=== PATIENT | male | born 1940 | race Caucasian/White ===

== ENCOUNTER → 2017-01-07 | Outpatient (CLI) | payer OTHER ==
[~2017-01-07] MED LIST: ASPIR 8181 MG PO; ASPIRIN325 PO; COREG25 MG PO; HYDRALAZINE 2525 MG PO; IBUPROFEN 200200 M1 PO; LASIX 20 MG TAB20 MG PO; NORVASC10 MG PO; PRINIVIL20 M1 PO
== END ==
LOC: NUC 08:06
DX: R07.9 Chest pain, unspecified (principal); I10 Essential (primary) hypertension; E78.5 Hyperlipidemia, unspecified; Z72.0 Tobacco use

== ENCOUNTER → 2017-07-12 | Outpatient (CLI) | payer OTHER ==
--- NOTE | ~2017-07-12 | 2DMMODE ---
[facility] [address] [place] [address] 2 D/M-MODE ECHOCARDIOGRAM Name: WALESKA PIERCE Room #: REG CL [facility]#: [id number] Admission: 07/12/17 Attend Phys: Maxwell Cullen MD Discharge: Date of : 40 Date of Service: 07/12/17 1404 Report #: [id number] THIS REPORT FOR: //name// APPROVED REPORT Study performed: 07/12/2017 13:56:49 EXAM: Comprehensive 2D, Doppler, and color-flow Echocardiogram Patient Location: Out-Patient Status: routine BSA: 1.85 HR: 56 bpm BP: 117/60 mmHg Rhythm: NSR Other Information Study Quality: Good Indications Essential HTN. Hx: PVD 2D Dimensions RVDd: 39.79 mm LVEF(%): 63.54 (>50%) IVSd: 10.12 (7-11mm) LVOT Diam: 19.63 (18-24mm) LVDd: 38.57 mm PWd: 10.37 (7-11mm) Ascending Ao: 26.58 (22-36mm) LVDs: 25.48 (25-40mm) Aortic Root: 32.17 mm Eaton's LVEF: 63.54 % Volumes Left Atrial Volume (Systole) Single Plane 4CH: 45.68 mL Single Plane 2CH: 45.36 mL LA ESV Index: 28.00 mL/m2 Aortic Valve AoV Peak José Antonio.: 1.37 m/s AO Peak Gr.: 7.50 mmHg LVOT Max P.32 mmHg LVOT Max V: 1.04 m/s TITO Vmax: 2.30 cm2 Mitral Valve E/A Ratio: 1.4 MV Decel. Time: 183.70 ms [facility] [place] [address] 2 D/M-MODE ECHOCARDIOGRAM Name: WALESKA PIERCE Room #: REG [facility]#: [id number] Admission: 07/12/17 Attend Phys: Maxwell Cullen MD Discharge: Date of : 40 Date of Service: 07/12/17 1404 Report #: [id number] MV E Max José Antonio.: 0.96 m/s MV A José Antonio.: 0.69 m/s MV PHT: 53.27 ms IVRT: 69.20 ms Pulmonary Valve PV Peak José Antonio.: 0.86 m/s PV Peak Gr.: 2.97 mmHg Pulmonary Vein P Vein S: 0.50 m/s P Vein A: 0.38 m/s P Vein D: 0.63 m/s P Vein A Dur.: 87.7 msec P Vein S/D Ratio: 0.79 Tricuspid Valve TR Peak José Antonio.: 3.00 m/s RAP Estimate: 10.00 mmHg TR Peak Gr.: 35.91 mmHg PA Pressure: 46.00 mmHg Left Ventricle The left ventricle is normal size. There is normal LV segmental wall motion. There is normal left ventricular wall thickness. Left ventricular systolic function is normal. LVEF is 60%. Moderate diastolic dysfunction is present (pseudonormal filling). Right Ventricle The right ventricle is normal size. The right ventricular systolic function is normal. Atria The left atrium size is normal. The right atrium size is normal. Aortic Valve Aortic valve is calcified. Mild to moderate aortic regurgitation. There is no aortic valvular stenosis. Mitral Valve The mitral valve is normal in structure. Mild mitral regurgitation. Tricuspid Valve The tricuspid valve is normal in structure. Mild tricuspid regurgitation. Estimated PAP is 46mmHg. Pulmonic Valve Pulmonic valve is not well visualized. Trace pulmonic [address] [address] 2 D/M-MODE ECHOCARDIOGRAM Name: WALESKA PIERCE Room #: REG CL [facility]#: [id number] Admission: 07/12/17 Attend Phys: Maxwell Cullen MD Discharge: Date of : 40 Date of Service: 07/12/17 1404 Report #: [id number] regurgitation. Great Vessels The aortic root is normal in size. The ascending aorta is normal in size. IVC is normal in size and collapses <50% with inspiration. Pericardium There is no pericardial effusion. <Conclusion> The left ventricle is normal size. Left ventricular systolic function is normal. Moderate diastolic dysfunction is present (pseudonormal filling). The right ventricle is normal size. The left atrium size is normal. Mild to moderate aortic regurgitation. Mild mitral regurgitation. Mild tricuspid regurgitation. Estimated PAP is 46mmHg. <ELECTRONICALLY SIGNED> By: Maxwell Cullen MD 07/12/17 1404 1404 1404 Maxwell Cullen MD /INF
== END ==
LOC: CV 08:34
DX: I08.3 Combined rheumatic disorders of mitral, aortic and tricuspid valves (principal); I10 Essential (primary) hypertension; I73.9 Peripheral vascular disease, unspecified

== ENCOUNTER 2017-11-02 14:58 | Inpatient (IN) | payer OTHER ==
[~2017-11-02] VITALS: Ht 167.6 cm; Wt 75.7 kg
--- NOTE | ~2017-11-02 | H ---
[facility] [place] [address] HISTORY AND PHYSICAL Name: WALESKA PIERCE Room #: 203-P ADM IN M.R.#: [id number] Admission: 11/02/17 Attend Phys: Damir Pino Discharge: Date of : 40 Report #: [id number] THIS REPORT FOR: //name// CC: Iraj Garcia DATE OF SERVICE: 11/02/2017 CHIEF COMPLAINT: Fatigue and bloody stools. HISTORY OF PRESENT ILLNESS: The patient is a 77-year-old gentleman who presented to the Emergency Room with a sense of fatigue and reports of hematemesis and melena. He does have a history of vascular disease including coronary artery disease and peripheral artery disease with previous stent, most recently being what he describes as a stent to the right iliac artery in 02/2017. As a result, he has been on aspirin and Plavix. He said, Wednesday morning, he developed some nausea and vomiting and he described the material as "black emesis" and he described some liquid black tarry type stools. Presentation to ER revealed a hemoglobin of 8. PAST MEDICAL HISTORY: Coronary artery disease with history of stent, peripheral artery disease with recent history of stent in 02/2017, hypertension. Appears he had a colonoscopy, he says about 4 years ago. PAST SURGICAL HISTORY: As above. FAMILY HISTORY: Noncontributory. SOCIAL HISTORY: Remote tobacco use, none currently. Alcohol use about 2 drinks a day. ALLERGIES: None. MEDICATIONS: Norvasc, Prinivil, Coreg, pravastatin, aspirin, Plavix, Lasix. REVIEW OF SYSTEMS: He denies headache, chest pain, shortness of breath, abdominal pain, nausea, vomiting, diarrhea, constipation, dysuria, syncope. OBJECTIVE: VITAL SIGNS: Temperature 36.6, pulse 67, respirations 16, blood pressure 109/43, O2 sat 98% on room air. GENERAL: He is awake and alert, in no distress. LUNGS: Clear with no wheezing. HEART: Regular without murmur. ABDOMEN: Soft, normoactive bowel sounds. EXTREMITIES: No edema. NEUROLOGIC: Motor strength 5/5 throughout. [facility] [address] [place] [address] HISTORY AND PHYSICAL Name: WALESKA PIERCE Room #: 203-P [facility] IN .R.#: [id number] Admission: 11/02/17 Attend Phys: Damir Pino Discharge: Date of : 40 Report #: [id number] LABORATORY DATA: Repeat hemoglobin this morning was 6.9. ASSESSMENT: 1. Gastrointestinal bleed. 2. Anemia due to acute blood loss. 3. Coronary artery disease. 4. Peripheral artery disease. 5. Acute kidney injury. PLAN: He is receiving blood transfusion currently. I will see if this affects his renal function studies. Follow up lab data tomorrow. I will hold his IRIS inhibitor for now and it appears that we can discontinue his Plavix. GI has assessed him as well. <ELECTRONICALLY SIGNED> By: Sung Gray MD 11/04/17 0908 1303 1318 Sung Gray MD /nt
--- NOTE | ~2017-11-02 | S ---
[facility] [place] [address] SURGICAL PATH RPT PROCEDURE Name: WALESKA GODOY Room #: 203-P DIS IN M.R.#: [id number] Admission: 11/02/17 Date of : 40 Discharge: 11/06/17 Report #: [id number] Path Case #: [id number] PATHOLOGY REPORT COLLECTION DATE: 11/06/2017 RECEIVED DATE: 11/08/2017 SUBMITTING PHYS: Dr. Deion Leblanc OTHER PHYS: Dr. Iraj Garcia SPECIMEN(S) RECEIVED: A.Bx of antrum, r/o H. pylori * * * * * * * * * * * * FINAL DIAGNOSIS: Gastric mucosa, antrum, endoscopic biopsy: - Mild reactive gastropathy with focal active gastritis. - Negative for intestinal metaplasia or atrophy. - Negative for Helicobacter pylori. COMMENT: Well controlled Helicobacter pylori immunohistochemical stain performed on block A1 - negative. (IUV:pit; 11/09/2017) PATHOLOGIST: Ayde Ram M.D. REPORT ELECTRONICALLY SIGNED BY: Ayde Ram M.D. DATE/TIME: 11/09/2017 13:59 * * * * * * * * * * * * GROSS PATHOLOGY: Received in formalin labeled "Nancy Godoy BX of antrum" and consists of a 0.3 cm soft daniels tissue fragment which is entirely submitted as A1. (SIMI; 11/08/2017) CLINICAL HISTORY: Gastritis Hiatal hernia Stricture INITIAL CPT CODE(S): A; 77765, 32645 Professional services performed by [facility] at [facility] [address], [place] [address] [facility] [address] [place] [address] SURGICAL PATH RPT PROCEDURE Name: WALESKA GODOY Room #: 203-P DIS IN M.R.#: [id number] Admission: 11/02/17 Date of : 40 Discharge: 11/06/17 Report #: [id number] Path Case #: [id number] [facility] at [address] [place] [address], [facility] [address] [address]. [facility] [address] [address] PHONE: [phone] DIRECTOR: Antione Austin M.D. * * * END OF REPORT * * *
--- NOTE | ~2017-11-02 | EKG ---
[address] [address] ELECTROCARDIOGRAM REPORT Name: WALESKA PIERCE Room #: 170-12 ADM IN M.R.#: [id number] Admission: 11/02/17 Attend Phys: Damir Pino Discharge: Date of : 40 Report #: [id number] THIS REPORT FOR: //name// [facility] ED Test Date: 2017-11-02 Test Time: 16:05:40 Pat Name: WALESKA PIERCE Department: Room: 170 Gender: M [employer] Supervisor: [facility] : 1940 Requested By: Regina Jacobs Order Number: [id number] MD: Sinan Harrell Measurements Intervals [place] Rate: 66 P: 0 CO: 147 QRS: 54 QRSD: 93 T: 28 QT: 416 QTc: 436 Interpretive Statements Sinus rhythm No significant abnormality Compared to ECG 04/21/2016 15:45:11 No significant changes Electronically Signed On 11-02-2017 17:10:17 CDT by Sinan Harrell [email or web address] <ELECTRONICALLY SIGNED> By: Sinan Harrell MD, [facility] 11/02/17 1710 1605 1605 Sinan Harrell MD, FAC /EPI
[2017-11-02 15:11] VITALS: BP 112/47
[2017-11-02] MEDS ORDERED: PRAVACHOL40 MG PO (15:34)
[2017-11-02] MEDS ORDERED: ASPIR 8181 MG PO (15:34)
[2017-11-02] MEDS ORDERED: PLAVIX 75 MG TA75 M1 PO (15:34)
[2017-11-02 15:35] LABS: ABSOLUTE NEUTROPHILS 7.8 thou/uL (1.4-8.2); BASOPHILS 0.8 % (0.0-2.0); EOSINOPHILS 1.4 % (0.0-3.0); HEMATOCRIT 22.9 % (42.0-52.0); LYMPHOCYTES 11.9 % (24.0-44.0); MCH 33.7 pg (26.0-34.0); MCV 96.3 fL (80.0-100.0); MONOCYTES 6.5 % (1.0-8.0); PLATELET COUNT 226 thou/uL (150-400); POLYS 79.4 % (36.0-66.0); RBC 2.38 mil/uL (4.50-6.00); RDW 13.5 % (10.5-14.5); WBC 9.9 thou/uL (4.0-11.0)
[2017-11-02] MEDS ORDERED: LASIX 20 MG TAB20 MG PO (15:36)
[2017-11-02 15:53] LABS: CALCIUM 8.9 mg/dL (8.5-10.1); CREATININE 2.4 mg/dL (0.7-1.3); POTASSIUM 4.6 mmol/L (3.5-5.1)
[2017-11-02 15:58] LABS: ALBUMIN 3.6 g/dL (3.4-5.0); TOTAL BILIRUBIN 0.3 mg/dL (<0.1-1.0)
[2017-11-02 17:05] LABS: PROTIME 10.4 Seconds (9.3-11.4)
[2017-11-02 17:33] VITALS: BP 122/53
[2017-11-02 18:40] VITALS: BP 120/62
[2017-11-02 19:30] VITALS: BP 120/55
[2017-11-03 00:43] VITALS: BP 120/60
[2017-11-03 05:07] VITALS: BP 117/44
[2017-11-03 07:19] VITALS: BP 131/51
[2017-11-03 07:37] LABS: URINE BILIRUBIN NEGATIVE (Negative); URINE BLOOD NEGATIVE (Negative); URINE CLARITY CLEAR; URINE COLOR YELLOW; URINE GLUCOSE-RANDOM* NEGATIVE (Negative); URINE KETONES NEGATIVE (Negative); URINE LEUKOCYTES NEGATIVE (Negative); URINE NITRITE NEGATIVE (Negative); URINE PROTEIN (DIPSTICK) 2+ (Negative); URINE SPECIFIC GRAVITY 1.015 (1.005-1.035); URINE UROBILINOGEN 0.2 E.U./dl (0.2-1.0)
[2017-11-03 07:44] LABS: CASTS None Seen /LPF (None Seen); CRYSTALS None Seen /LPF (None Seen); SQUAMOUS None Seen /LPF (0-3); URINE RBC None Seen /HPF (0-2)
[2017-11-03 07:46] LABS: BACTERIA 1-9 Few /HPF (None Seen); URINE WBC 0-5 Rare /HPF (0-5)
[2017-11-03 10:48] LABS: RBC 2.05 mil/uL (4.50-6.00)
[2017-11-03 10:50] LABS: MCH 33.6 pg (26.0-34.0); MCHC 35.3 g/dL (28.0-37.0); RDW 13.2 % (10.5-14.5); WBC 5.3 thou/uL (4.0-11.0)
[2017-11-03 10:53] LABS: HEMATOCRIT 19.5 % (42.0-52.0); HEMOGLOBIN 6.9 gm/dL (14.0-18.0)
[2017-11-03 11:29] VITALS: BP 109/43
[2017-11-03 12:05] VITALS: BP 108/55; BP 114/47; BP 124/52
[2017-11-03 12:45] LABS: % SATURATION 23 % (20-39); IRON 63 ug/dL (65-175); TIBC 273 ug/dL (250-450)
[2017-11-03 16:56] LABS: HEMOGLOBIN 9.1 gm/dL (14.0-18.0)
[2017-11-03 18:39] VITALS: BP 119/41
[2017-11-03 23:13] LABS: HEMATOCRIT 23.8 % (42.0-52.0); HEMOGLOBIN 8.4 gm/dL (14.0-18.0)
[2017-11-04 04:10] VITALS: BP 123/80
[2017-11-04 05:03] LABS: HEMATOCRIT 25.2 % (42.0-52.0); HEMOGLOBIN 8.9 gm/dL (14.0-18.0); MCH 32.6 pg (26.0-34.0); MCHC 35.4 g/dL (28.0-37.0); RBC 2.74 mil/uL (4.50-6.00); RDW 14.8 % (10.5-14.5); WBC 6.6 thou/uL (4.0-11.0)
[2017-11-04 05:15] LABS: CALCIUM 8.5 mg/dL (8.5-10.1); CREATININE 1.6 mg/dL (0.7-1.3); POTASSIUM 3.7 mmol/L (3.5-5.1)
[2017-11-04 07:05] VITALS: BP 131/60
[2017-11-04 11:20] VITALS: BP 124/42
[2017-11-04 11:26] LABS: HEMATOCRIT 23.1 % (42.0-52.0); HEMOGLOBIN 8.2 gm/dL (14.0-18.0)
[2017-11-04 15:20] VITALS: BP 137/45
[2017-11-04 17:16] LABS: HEMATOCRIT 25.4 % (42.0-52.0)
[2017-11-04 19:19] VITALS: BP 134/47
[2017-11-04 23:16] LABS: HEMATOCRIT 24.4 % (42.0-52.0); HEMOGLOBIN 8.5 gm/dL (14.0-18.0)
[2017-11-05 04:25] LABS: HEMATOCRIT 26.4 % (42.0-52.0); HEMOGLOBIN 9.2 gm/dL (14.0-18.0); MCH 32.6 pg (26.0-34.0); MCHC 34.9 g/dL (28.0-37.0); MCV 93.3 fL (80.0-100.0); RBC 2.83 mil/uL (4.50-6.00); RDW 14.6 % (10.5-14.5); WBC 7.8 thou/uL (4.0-11.0)
[2017-11-05 04:36] VITALS: BP 145/56
[2017-11-05 04:38] LABS: CALCIUM 8.4 mg/dL (8.5-10.1); CREATININE 1.5 mg/dL (0.7-1.3); POTASSIUM 3.7 mmol/L (3.5-5.1)
[2017-11-05 07:55] VITALS: BP 150/57
[2017-11-05 12:09] VITALS: BP 149/51
[2017-11-05 15:53] VITALS: BP 139/45
[2017-11-05 19:45] VITALS: BP 149/69
[2017-11-06 03:31] LABS: HEMATOCRIT 28.2 % (42.0-52.0); MCHC 35.6 g/dL (28.0-37.0); MCV 92.6 fL (80.0-100.0); RBC 3.04 mil/uL (4.50-6.00); RDW 14.6 % (10.5-14.5); WBC 7.3 thou/uL (4.0-11.0)
[2017-11-06 03:40] LABS: CALCIUM 8.8 mg/dL (8.5-10.1); CREATININE 1.4 mg/dL (0.7-1.3)
[2017-11-06 05:22] VITALS: BP 148/65
[2017-11-06 08:11] VITALS: BP 122/54
[2017-11-06 12:16] VITALS: BP 128/48
[2017-11-06] MEDS ORDERED: PROTONIX40 M1 PO (12:27)
[2017-11-06 12:31] VITALS: BP 128/48
== END 2017-11-06 14:05 | disposition home health service (06) | DRG 377 ==
LOC: ER 14:58 → EROBS 16:51 → 2N 16:51
PROVIDERS: Internal Medicine Gastroenterology; Internal Medicine Geriatric Medicine; Physician Assistant
PROC: 30233N1 Transfusion of Nonautologous Red Blood Cells into Peripheral Vein, Percutaneous Approach (ICD-10-PCS; principal; 2017-11-03)
PROC: 0D758ZZ Dilation of Esophagus, Via Natural or Artificial Opening Endoscopic (ICD-10-PCS; 2017-11-06)
PROC: 0DJ08ZZ Inspection of Upper Intestinal Tract, Via Natural or Artificial Opening Endoscopic (ICD-10-PCS; 2017-11-06)
DX: K29.01 Acute gastritis with bleeding (principal); N17.0 Acute kidney failure with tubular necrosis; D62 Acute posthemorrhagic anemia; I10 Essential (primary) hypertension; Z96.642 Presence of left artificial hip joint; F17.210 Nicotine dependence, cigarettes, uncomplicated; T45.525A Adverse effect of antithrombotic drugs, initial encounter; I25.10 Atherosclerotic heart disease of native coronary artery without angina pectoris; I73.9 Peripheral vascular disease, unspecified; K59.00 Constipation, unspecified; K44.9 Diaphragmatic hernia without obstruction or gangrene; K22.2 Esophageal obstruction; Z79.899 Other long term (current) drug therapy; Z79.82 Long term (current) use of aspirin
CPT/HCPCS: 10081; 62110; 62900